=== PATIENT | female | born 1950 | race Caucasian/White ===

== ENCOUNTER → 2016-06-11 | Outpatient (CLI) | payer OTHER ==
--- NOTE | 2016-06-11 15:01 | MG ---
HISTORY: Palpable left breast lump marked at the 7 o'clock position, diagnostic left breast mammogr am Comparison: Screening mammogram 12/04/2015 FINDINGS: Mammogram: CC , ML, and MLO views of the left breast demonstrate stable scattered benign appearing c oarse calcifications . In the region of interest there is no mammographic abnormality identified. No new suspicious microcalcifications or architectural distortion is seen. Given the presence of a pal pable abnormality, ultrasound of the left breast will be performed. Ultrasound: Ultrasound of the left breast was performed. Shadowing calcifications are seen at the 8 o'clock position and the 12 o'clock position. At the 12 o'clock position there is an additional lesi on with central anechoic areas as well as thickened septation and peripheral cates with mild vascula rity suggestive of a complex cyst measuring approximately 7 x 7 x 5 mm. IMPRESSION: There is a lesion at the 12 o'clock position of the left breast as described suggestive of a complex cyst. Followup unilateral left breast ultrasound is recommended in 6 months to ensure stability. This can be performed at the time of patient's normal routine yearly screening mammogram. No radiographic or sonographic abnormality was identified in the region of patient's palpable lump. ACR CATEGORY 3: Probably benign finding; short interval followup suggested. Diagnostic CAD was utilized and reviewed. * 0 (ZERO) - ASSESSMENT INCOMPLETE; ADDITIONAL IMAGING IS NEEDED. * 1/1 (ONE) - NEGATIVE. * 2/II (TWO) - BENIGN FINDINGS. * 3/III (THREE) - PROBABLY BENIGN FINDING; SHORT INTERVAL FOLLOW-UP SUGGESTED. * 4/IV (FOUR) - SUSPICIOUS ABNORMALITY; BIOPSY SHOULD BE CONSIDERED. * 5/V - HIGHLY SUSPICIOUS OF MALIGNANCY; BIOPSY SHOULD BE PERFORMED. A NEGATIVE X-RAY REPORT SHOULD NOT DELAY BIOPSY IF A DOMINANT OR CLINICALLY SUSPICIOUS MASS IS PRESENT; 4 TO 8 PERCENT OF CANCERS ARE NOT IDENTIFIED BY X-RAY. A NEG ATIVE REPORT MAY REINFORCE THE CLINICAL IMPRESSION. ADENOSIS AND DENSE BREASTS MAY OBSCURE AN UNDER LYING NEOPLASM. Reported By:
== END ==
LOC: RAD 13:06
PROVIDERS: ATTEND Nurse Practitioner Family
DX: N63 Unspecified lump in breast (principal)
CPT/HCPCS: 76642; 77065

== ENCOUNTER → 2017-04-07 | Outpatient (CLI) | payer OTHER ==
--- NOTE | 2017-04-07 14:55 | RAD ---
Indication: Right neck mass Exam: PA and lateral chest Comparison: None. Findings: The left ventricle is mildly enlarged. The pulmonary vessels are normal. No consolidation o r effusion is seen. The bones are intact. Impression: Mild left ventricular enlargement with no acute pulmonary abnormality. Reported By:
--- NOTE | 2017-04-08 08:28 | US ---
Examination: Soft tissue ultrasound of the neck. Clinical history: Lump in right neck. Technique: Real-time grayscale ultrasound was used to evaluate the soft tissues of the right neck in the area of palpable concern. Comparison: None available. Findings: There is a 0.6 x 0.3 x 0.5 cm mildly heterogeneous, well-circumscribed oval mass present in the right neck, probably representing a small lymph node. No additional abnormality is evident. Impression: 1. Probable small lymph node in the right neck, as described above. A CT of the soft tissues of the n amilcar, with intravenous contrast, could be obtained for a more complete evaluation of the findings, if clinically indicated. Reported By:
== END ==
LOC: RAD 13:46
PROVIDERS: ATTEND Nurse Practitioner Family
DX: R22.1 Localized swelling, mass and lump, neck (principal); R13.19 Other dysphagia; R06.02 Shortness of breath
CPT/HCPCS: 71046; 76536

== ENCOUNTER → 2017-04-12 | Outpatient (CLI) | payer OTHER ==
[~2017-04-12] MED LIST: NS 250 ML IV 250 ML IV ONE
--- NOTE | 2017-04-12 10:49 | CT ---
HISTORY: Abdominal pain Study: CT abdomen and pelvis with contrast Comparison: None Technique: Multiple axial images of the abdomen and pelvis were obtained with IV contrast. Oral contrast was ad ministered. Dose reduction techniques including Automated Exposure Control (AEC) and adjustment of mA and kV were utilized. Findings: The visualized portions of the lung bases are clear. There is a well-circumscribed hypodense lesion in the right hepatic lobe suggestive of a cyst. Bilateral renal cysts are also noted that appears sim ple. The spleen, pancreas, and gallbladder are unremarkable. No calculi or obstructive uropathy ident ified. No free intraperitoneal air. No evidence of intestinal obstruction or inflammation. Oral contrast gabino ches the distal colon. Sigmoid diverticulosis is noted. The appendix is removed. No free fluid is edmar ntified. Multilevel fusion and laminectomy of the lumbar spine is noted spanning L3 through L5. The vascular s tructures are within normal limits for age. No pathologically enlarged lymph nodes are identified. Th e uterus is removed. The urinary bladder is unremarkable. IMPRESSION: 1. No acute abnormality is identified. 2. Sigmoid diverticulosis. 3. Findings suggestive of renal and hepatic cysts. 4. Postsurgical changes as described. Reported By:
== END ==
LOC: RAD 09:17
PROVIDERS: ATTEND Nurse Practitioner Family
DX: R10.84 Generalized abdominal pain (principal); N39.0 Urinary tract infection, site not specified; D13.0 Benign neoplasm of esophagus
CPT/HCPCS: 74177; A4222

== ENCOUNTER → 2017-04-20 | Outpatient (CLI) | payer OTHER ==
--- NOTE | 2017-04-20 14:41 | CT ---
CT NECK WITH IV CONTRAST CLINICAL INDICATION: Thyroid nodule TECHNIQUE: Multiple-row detector helical CT examination of the neck with IV contrast per standard de partmental protocol.Dose reduction techniques including Automated Exposure Control (AEC) and adjustme nt of mA and kV were utlized. COMPARISON: Thyroid ultrasound 04/07/2017 FINDINGS: The aerodigestive structures are within normal limits. Specifically, the nasal cavity, nasopharynx, oral cavity, oropharynx, hypopharynx, larynx, and visualized trachea and esophagus demonstrate no mas ses or abnormal enhancement. No pathologically enlarged, necrotic, or otherwise abnormal lymph nodes. The parotid and submandibular glands appear within normal limits. Patient appears to be status post r ight thyroidectomy. There is a small focus of possible residual thyroid tissue in the right thyroid b ed. The remainder of the thyroid gland is unremarkable. Evaluation of the visualized portions of brain parenchyma and orbits demonstrates no abnormality. The visualized paranasal sinuses are predominantly clear. The tympanomastoid cavities are unopacified. T here is normal intravascular enhancement. Limited evaluation of the lung apices demonstrates no abnormality. The visualized osseous structures are within normal limits. Following administration of intravenous contrast material, there is no abnormal enhancement. IMPRESSION: 1. Status post right thyroidectomy with some residual thyroid tissue in the right thyroid bed. No sig nificant abnormalities of the neck. Reported By:
== END ==
LOC: RAD 10:27
PROVIDERS: ATTEND Nurse Practitioner Family
DX: R22.1 Localized swelling, mass and lump, neck (principal); R93.8 Abnormal findings on diagnostic imaging of other specified body structures; Z90.89 Acquired absence of other organs
CPT/HCPCS: 70491; A4222